=== PATIENT | female | born 1950 | race Caucasian/White ===

== ENCOUNTER → 2016-12-28 | Outpatient (CLI) | payer MEDICARE, OTHER ==
[~2016-12-28] MED LIST: ASPI325T; CALCTAB22; CHOLEST-OFF; CINNAMON; FISHCAP; FLAX SEED OIL; FOSAMAX70 PO; GARLPOW; IMITREX25 PO; IMITREX50 PO; NIASPAN500 PO; PRIL20CA; SUMA125TA; VITA500T; VITAMIN B12; ZETIA PO; [UNRECOGNIZED DRUG - CODE] PO; [UNRECOGNIZED DRUG - OTHER]; lopressor
--- NOTE | 2016-12-28 12:34 | REPMRS ---
Patient History The patient states she had a clinical breast exam in 12/2016. Patient is postmenopausal. Family history of colorectal cancer in brother. Taking estrogen for 4 years. Digital Woman Screen Mammo: December 28, 2016 - Exam #: [id number] Bilateral CC and MLO view(s) were taken. Technologist: Tika Frances, Technologist Prior study comparison: December 26, 2015, digital woman screen mammo performed at [facility]. July 13, 2014, digital woman screen mammo performed at [facility]. July 13, 2013, digital woman screen mammo performed at [facility]. FINDINGS: There are scattered fibroglandular densities. There has been no change in the appearance of the mammogram from the prior studies. There is a mild amount of scattered fibroglandular density which is fairly symmetric. There is no interval development of dominant mass, architectural distortion, or clustered microcalcification suggestive of malignancy. ASSESSMENT: BI-RADS/ACR category 1 mammogram. Negative. Recommendation Routine screening mammogram in 1 year (for women over age 40). This mammogram was interpreted with the aid of an FDA-approved computer-aided dectection system. Electronically Signed By: Sotero Rivera MD 12/28/16 [id number]
== END ==
LOC: M WHC 10:13
PROVIDERS: ATTEND Nurse Practitioner Family
DX: Z01.419 Encounter for gynecological examination (general) (routine) without abnormal findings (principal); Z12.31 Encounter for screening mammogram for malignant neoplasm of breast; Z78.0 Asymptomatic menopausal state; Z80.0 Family history of malignant neoplasm of digestive organs
CPT/HCPCS: G0101; G0202

== ENCOUNTER → 2017-10-14 | Outpatient (REF) | payer OTHER, MEDICARE | LOC: M LAB REF 14:40 | PROVIDERS: ATTEND Surgery | DX: D17.1 Benign lipomatous neoplasm of skin and subcutaneous tissue of trunk (principal) ==

== ENCOUNTER → 2018-02-10 | Outpatient (REF) | payer MEDICARE, OTHER | LOC: M LAB REF 12:14 | DX: L72.11 Pilar cyst (principal) | CPT/HCPCS: 88304 ==

== ENCOUNTER → 2018-03-10 | Outpatient (CLI) | payer MEDICARE, OTHER | LOC: M WHC 10:45 | DX: Z01.419 Encounter for gynecological examination (general) (routine) without abnormal findings (principal); Z12.31 Encounter for screening mammogram for malignant neoplasm of breast (principal); Z78.0 Asymptomatic menopausal state; Z80.0 Family history of malignant neoplasm of digestive organs; Z92.23 Personal history of estrogen therapy; Z12.12 Encounter for screening for malignant neoplasm of rectum | CPT/HCPCS: 77067 ==

== ENCOUNTER → 2019-03-13 | Outpatient (CLI) | payer MEDICARE, OTHER ==
--- NOTE | 2019-03-13 18:00 | REPMRS ---
Patient History The patient states she had a clinical breast exam in 03/2019. Patient is postmenopausal. Family history of colorectal cancer in brother. Taking estrogen for 6 years. Digital Woman Screen Mammo: March 13, 2019 - Exam #: [id number] Bilateral CC and MLO view(s) were taken. Technologist: Rosario Salmon, Technologist Prior study comparison: March 10, 2018, digital woman screen mammo performed at [facility]. December 28, 2016, digital woman screen mammo performed at [facility]. December 26, 2015, digital woman screen mammo performed at [facility]. FINDINGS: There are scattered fibroglandular densities. There has been no change in the appearance of the mammogram from the prior studies. There is a mild amount of scattered fibroglandular density which is fairly symmetric. There is no interval development of dominant mass, architectural distortion, or clustered microcalcification suggestive of malignancy. 3-D tomosynthesis shows no additional findings. Assessment: BI-RADS/ACR category 1 mammogram. Negative Mammogram. Recommendation Routine screening mammogram of both breasts in 1 year (for women over age 40). This patient's Lifetime Breast Cancer RIsk is estimated at 3.9 %. This mammogram was interpreted with the aid of an FDA-approved computer-aided dectection system. Electronically Signed By: Sotero Rivera MD 03/13/19 [id number]
== END ==
LOC: M WHC 14:15
PROVIDERS: ATTEND Nurse Practitioner Family
DX: Z01.419 Encounter for gynecological examination (general) (routine) without abnormal findings (principal); Z12.31 Encounter for screening mammogram for malignant neoplasm of breast; Z78.0 Asymptomatic menopausal state; Z80.0 Family history of malignant neoplasm of digestive organs; Z92.23 Personal history of estrogen therapy; Z12.12 Encounter for screening for malignant neoplasm of rectum
CPT/HCPCS: 77063; 77067; 82270; G0101

== ENCOUNTER → 2020-10-11 | Outpatient (REF) | payer MEDICARE, OTHER | LOC: M LAB REF 09:17 | PROVIDERS: ATTEND Dermatology | DX: D23.39 Other benign neoplasm of skin of other parts of face (principal); L90.5 Scar conditions and fibrosis of skin ==

== ENCOUNTER → 2020-10-22 | Outpatient (CLI) | payer MEDICARE, OTHER ==
--- NOTE | 2020-10-22 16:25 | REPMRS ---
Patient History The patient states she had a clinical breast exam in 10/2020 Patient is postmenopausal. Family history of colorectal cancer in brother. Taking estrogen for 7 years. 3D TOMOSYNTHESIS WAS PERFORMED. The Dara Caraballo lifetime risk for breast cancer is 3.5%. [place] breast density b. Digital Woman Screen Mammo: October 22, 2020 - Exam #: [id number] Bilateral CC and MLO view(s) were taken. Technologist: Rosario Salmon, Technologist Prior study comparison: March 13, 2019, bilateral digital woman screen mammo performed at [facility] [place]. March 10, 2018, digital woman screen mammo performed at [facility]. FINDINGS: There are scattered fibroglandular densities. There has been no change in the appearance of the mammogram from the prior studies. There is a mild amount of residual fibroglandular tissue which is fairly symmetric. There is no interval development of dominant mass, architectural distortion, or clustered microcalcification suggestive of malignancy. Assessment: BI-RADS/ACR category 1 mammogram. Negative Mammogram. Recommendation Routine screening mammogram in 1 year (for women over age 40). This mammogram was interpreted with the aid of an FDA-approved computer-aided dectection system. Electronically Signed By: Ermias Riley MD 10/22/20 [id number]
== END ==
LOC: M WHC 14:28
PROVIDERS: ATTEND Nurse Practitioner Family
DX: Z12.31 Encounter for screening mammogram for malignant neoplasm of breast (principal); Z78.0 Asymptomatic menopausal state; Z80.0 Family history of malignant neoplasm of digestive organs; Z92.23 Personal history of estrogen therapy
CPT/HCPCS: 77063; 77067; G0463

== ENCOUNTER → 2024-02-09 | Outpatient (REF) | payer MEDICARE, OTHER | LOC: M SFHCWAGY 15:05 | PROVIDERS: ATTEND Nurse Practitioner Family | DX: L29.2 Pruritus vulvae (principal) ==

== ENCOUNTER → 2025-02-13 | Outpatient (REF) | payer MEDICARE, OTHER | LOC: M SFHCWAGY 13:08 | PROVIDERS: ATTEND Nurse Practitioner Family | DX: L92.2 Granuloma faciale [eosinophilic granuloma of skin] (principal) ==